=== PATIENT | male | born 1955 | race Caucasian/White ===

== ENCOUNTER 2018-07-07 17:23 | Inpatient (IN) | payer MEDICARE ==
[~2018-07-07] VITALS: Ht 182.9 cm; Wt 106.5 kg
[2018-07-07 22:01] VITALS: BP 146/72; BMI 34.1
[2018-07-07] MEDS ORDERED: ISOSORBIDE MONO60 M1 PO (23:15)
[2018-07-07] MEDS ORDERED: XALATAN 0.0052.5 ML EACH EYE (23:17)
[2018-07-07] MEDS ORDERED: ZESTRIL20 MG PO (23:17)
[2018-07-07] MEDS ORDERED: PIOGLITAZONE HC30 MG PO (23:18)
[2018-07-07] MEDS ORDERED: PROZAC40 MG PO (23:19)
[2018-07-07] MEDS ORDERED: NEURONTIN800 MG PO (23:20)
[2018-07-07] MEDS ORDERED: PREDNISONE10 MG PO (23:20)
[2018-07-07] MEDS ORDERED: ULTRAM50 MG PO (23:22)
[2018-07-07] MEDS ORDERED: CYCLOBENZAPRINE10 MG PO (23:22)
[2018-07-07] MEDS ORDERED: ALBUTEROL SULF8.5 GM INH (23:25)
[2018-07-07] MEDS ORDERED: ASPIRIN325 MG PO (23:27)
[2018-07-07] MEDS ORDERED: NAPROSYN500 MG PO (23:28)
[2018-07-07] MEDS ORDERED: PROTONIX40 MG PO (23:28)
[2018-07-07] MEDS ORDERED: FLUTICASONE PRO16 GM NASAL (23:29)
[2018-07-07] MEDS ORDERED: BASAGLAR K100 UNIT/1 SC (23:30)
[2018-07-07] MEDS ORDERED: HUMALOG 30100 UNITS/ SC (23:32)
[2018-07-07] MEDS ORDERED: ACETAMINOPHEN325 MG PO (23:32)
[2018-07-08 04:00] VITALS: BP 135/57
[2018-07-08 08:04] VITALS: BP 138/80
[2018-07-08 10:58] VITALS: BP 138/61
[2018-07-08 12:27] VITALS: Ht 182.9 cm; Wt 106.5 kg
[2018-07-08 15:24] VITALS: BP 132/74
[2018-07-08 16:43] LABS: HEMATOCRIT 39.1 % (42.0-54.0); HEMOGLOBIN 12.9 g/dL (13.5-17.5); MCH 28.8 pg (26.0-34.0); MCV 87.3 fL (80.0-100.0); MEAN PLATELET VOLUME 9.8 fL (7.4-10.4); PLATELET COUNT 208 10x3/uL (130-400); RBC 4.48 10x6/uL (4.20-6.10); RDW 13.5 % (11.5-14.5); WBC 6.2 10x3/uL (4.8-10.8)
[2018-07-08 16:52] LABS: APTT 26.9 SECONDS (22.8-39.4); INR 0.98 (0.85-1.17); PROTIME 12.6 SECONDS (11.6-15.0)
[2018-07-08 17:12] LABS: ALBUMIN 3.3 g/dL (3.4-5.0); ANION GAP 10.6 mmol/L (8-16); BILIRUBIN - TOTAL 0.3 mg/dL (0.2-1.3); CALCIUM 9.1 mg/dL (8.5-10.1); CARBON DIOXIDE 28.6 mmol/L (21.0-32.0); CREATININE - SERUM 1.1 mg/dL (0.6-1.3); MAGNESIUM - SERUM 1.6 mg/dL (1.8-2.4); POTASSIUM - SERUM 4.2 mmol/L (3.5-5.1); PROTEIN - SERUM 7.4 g/dL (6.4-8.2)
[2018-07-08 21:04] VITALS: BP 172/85
[2018-07-09 05:48] VITALS: BP 160/80
[2018-07-09 07:04] LABS: BASOPHILS 0.5 % (0-2); EOSINOPHILS 3.8 % (0-7); HEMATOCRIT 40.7 % (42.0-54.0); HEMOGLOBIN 13.7 g/dL (13.5-17.5); IMMATURE GRANULOCYTES 0.4 % (0-5); MCHC 33.7 g/dL (31.0-37.0); MEAN PLATELET VOLUME 9.9 fL (7.4-10.4); MONOCYTES 8.5 % (2-11); NEUTROPHILS 50.8 % (40-80); PLATELET COUNT 199 10x3/uL (130-400); RBC 4.73 10x6/uL (4.20-6.10); RDW 13.8 % (11.5-14.5)
[2018-07-09 07:05] LABS: WBC 8.4 10x3/uL (4.8-10.8)
[2018-07-09 07:08] LABS: CALC OSMOLALITY 270 mosm/kg (275-300); CALCIUM 8.9 mg/dL (8.5-10.1); CARBON DIOXIDE 21.3 mmol/L (21.0-32.0); CHLORIDE - SERUM 98 mmol/L (98-107); GLUCOSE 246 mg/dL (74-106); POTASSIUM - SERUM 4.5 mmol/L (3.5-5.1); SODIUM 130 mmol/L (136-145); UREA NITROGEN 17 mg/dL (7-18); eGFR NON AFRICAN AMERICAN 80 mL/min (90-120)
[2018-07-09 08:00] VITALS: BP 184/96
[2018-07-09 12:39] LABS: ERYTHROCYTE SEDIMENTATION RATE 35 mm/hr (0-20)
[2018-07-09 20:29] VITALS: BP 141/87
[2018-07-10 05:16] VITALS: BP 138/76
[2018-07-10 05:30] LABS: BASOPHILS 0 % (0-2); EOSINOPHILS 0 % (0-7); HEMATOCRIT 40.9 % (42.0-54.0); HEMOGLOBIN 13.9 g/dL (13.5-17.5); IMMATURE GRANULOCYTES 0.3 % (0-5); LYMPHOCYTES 6.9 % (15-50); MCH 29.6 pg (26.0-34.0); MCV 87.2 fL (80.0-100.0); MEAN PLATELET VOLUME 9.9 fL (7.4-10.4); MONOCYTES 4.7 % (2-11); NEUTROPHILS 88.1 % (40-80); PLATELET COUNT 227 10x3/uL (130-400); RBC 4.69 10x6/uL (4.20-6.10); RDW 13.9 % (11.5-14.5)
[2018-07-10 05:38] LABS: ANION GAP 12.7 mmol/L (8-16); CALCIUM 9.2 mg/dL (8.5-10.1); POTASSIUM - SERUM 4.8 mmol/L (3.5-5.1); WBC 16.1 10x3/uL (4.8-10.8)
[2018-07-10 05:40] LABS: CARBON DIOXIDE 27.1 mmol/L (21.0-32.0); CREATININE - SERUM 1.3 mg/dL (0.6-1.3)
[2018-07-10 08:23] VITALS: BP 165/92
[2018-07-10 11:43] VITALS: BP 158/77
[2018-07-10 15:21] VITALS: BP 166/84
[2018-07-10 20:00] VITALS: BP 164/80
[2018-07-11 00:56] VITALS: BP 166/80
[2018-07-11 04:00] VITALS: BP 136/50
[2018-07-11 06:21] LABS: BASOPHILS 0.2 % (0-2); EOSINOPHILS 0.5 % (0-7); HEMATOCRIT 38.3 % (42.0-54.0); HEMOGLOBIN 12.6 g/dL (13.5-17.5); IMMATURE GRANULOCYTES 0.3 % (0-5); LYMPHOCYTES 15.4 % (15-50); MCHC 32.9 g/dL (31.0-37.0); MCV 88.2 fL (80.0-100.0); MEAN PLATELET VOLUME 9.6 fL (7.4-10.4); MONOCYTES 7.1 % (2-11); NEUTROPHILS 76.5 % (40-80); PLATELET COUNT 201 10x3/uL (130-400); RBC 4.34 10x6/uL (4.20-6.10); RDW 13.9 % (11.5-14.5); WBC 13.2 10x3/uL (4.8-10.8)
[2018-07-11 06:37] LABS: CALCIUM 8.9 mg/dL (8.5-10.1); CARBON DIOXIDE 30.9 mmol/L (21.0-32.0); CHLORIDE - SERUM 103 mmol/L (98-107); SODIUM 140 mmol/L (136-145); UREA NITROGEN 19 mg/dL (7-18)
[2018-07-11 06:38] LABS: CALC OSMOLALITY 282 mosm/kg (275-300); GLUCOSE 142 mg/dL (74-106)
[2018-07-11 06:39] LABS: CREATININE - SERUM 0.9 mg/dL (0.6-1.3); POTASSIUM - SERUM 3.9 mmol/L (3.5-5.1); eGFR NON AFRICAN AMERICAN > 90 mL/min (90-120)
[2018-07-11 08:32] VITALS: BP 150/75
[2018-07-11 10:55] VITALS: BP 115/58
[2018-07-11 15:20] VITALS: BP 124/72
[2018-07-11 22:06] VITALS: BP 128/50
[2018-07-12 00:47] VITALS: BP 163/80
[2018-07-12 05:23] VITALS: BP 133/89
[2018-07-12 06:25] LABS: CALC OSMOLALITY 286 mosm/kg (275-300); CALCIUM 9.2 mg/dL (8.5-10.1); CARBON DIOXIDE 27.3 mmol/L (21.0-32.0); CHLORIDE - SERUM 101 mmol/L (98-107); CREATININE - SERUM 0.9 mg/dL (0.6-1.3); GLUCOSE 179 mg/dL (74-106); POTASSIUM - SERUM 4.1 mmol/L (3.5-5.1); SODIUM 141 mmol/L (136-145); UREA NITROGEN 17 mg/dL (7-18); eGFR NON AFRICAN AMERICAN > 90 mL/min (90-120)
[2018-07-12 06:36] LABS: BASOPHILS 0.3 % (0-2); EOSINOPHILS 3.3 % (0-7); HEMATOCRIT 42.1 % (42.0-54.0); HEMOGLOBIN 13.7 g/dL (13.5-17.5); IMMATURE GRANULOCYTES 0.1 % (0-5); LYMPHOCYTES 23.3 % (15-50); MCH 28.9 pg (26.0-34.0); MCHC 32.5 g/dL (31.0-37.0); MCV 88.8 fL (80.0-100.0); MEAN PLATELET VOLUME 10.2 fL (7.4-10.4); MONOCYTES 8.7 % (2-11); NEUTROPHILS 64.3 % (40-80); PLATELET COUNT 179 10x3/uL (130-400); RBC 4.74 10x6/uL (4.20-6.10); RDW 13.9 % (11.5-14.5)
[2018-07-12 06:37] LABS: WBC 8.6 10x3/uL (4.8-10.8)
[2018-07-12 08:30] VITALS: BP 155/77
[2018-07-12 15:00] VITALS: BP 134/71
[2018-07-12] MEDS ORDERED: ZOCOR20 MG PO (17:13)
[2018-07-12 22:50] VITALS: BP 145/59
[2018-07-13 01:58] VITALS: BP 125/81
[2018-07-13 05:20] LABS: BASOPHILS 0.2 % (0-2); EOSINOPHILS 3.4 % (0-7); HEMATOCRIT 39.1 % (42.0-54.0); HEMOGLOBIN 12.9 g/dL (13.5-17.5); IMMATURE GRANULOCYTES 0.3 % (0-5); LYMPHOCYTES 12.4 % (15-50); MCH 29.2 pg (26.0-34.0); MCV 88.5 fL (80.0-100.0); MEAN PLATELET VOLUME 9.7 fL (7.4-10.4); MONOCYTES 7.5 % (2-11); NEUTROPHILS 76.2 % (40-80); PLATELET COUNT 192 10x3/uL (130-400); RBC 4.42 10x6/uL (4.20-6.10); RDW 13.6 % (11.5-14.5)
[2018-07-13 05:27] LABS: WBC 11.6 10x3/uL (4.8-10.8)
[2018-07-13 05:39] LABS: CALC OSMOLALITY 275 mosm/kg (275-300); CALCIUM 9.3 mg/dL (8.5-10.1); CHLORIDE - SERUM 100 mmol/L (98-107); CREATININE - SERUM 0.9 mg/dL (0.6-1.3); GLUCOSE 154 mg/dL (74-106); SODIUM 136 mmol/L (136-145); UREA NITROGEN 16 mg/dL (7-18); eGFR NON AFRICAN AMERICAN > 90 mL/min (90-120)
[2018-07-13 06:15] VITALS: BP 151/78
[2018-07-13 07:56] VITALS: BP 158/75
[2018-07-13 10:44] VITALS: BP 144/58
[2018-07-13 16:18] LABS: ANCA - ANTIMYELOPEROXIDASE <9.0 U/mL (0.0-9.0); ANCA - ANTIPROTEINASE 3 <3.5 U/mL (0.0-3.5); ANCA - ATYPICAL <1:20 titer (Neg:<1:20); ANCA - CYTOPLASMIC <1:20 titer (Neg:<1:20); ANCA - PERINUCLEAR <1:20 titer (Neg:<1:20)
== END 2018-07-13 13:07 | DRG 65 ==
LOC: D.M2 17:23
PROVIDERS: Internal Medicine Nephrology
DX: I63.9 Cerebral infarction, unspecified (principal); I13.0 Hypertensive heart and chronic kidney disease with heart failure and stage 1 through stage 4 chronic kidney disease, or unspecified chronic kidney disease; M48.02 Spinal stenosis, cervical region; R40.2363 Coma scale, best motor response, obeys commands, at hospital admission; R40.2143 Coma scale, eyes open, spontaneous, at hospital admission; R40.2253 Coma scale, best verbal response, oriented, at hospital admission; E11.22 Type 2 diabetes mellitus with diabetic chronic kidney disease; N18.9 Chronic kidney disease, unspecified; I50.9 Heart failure, unspecified; E11.40 Type 2 diabetes mellitus with diabetic neuropathy, unspecified; I25.10 Atherosclerotic heart disease of native coronary artery without angina pectoris; E11.51 Type 2 diabetes mellitus with diabetic peripheral angiopathy without gangrene; M48.061 Spinal stenosis, lumbar region without neurogenic claudication; Z95.1 Presence of aortocoronary bypass graft; Z85.79 Personal history of other malignant neoplasms of lymphoid, hematopoietic and related tissues; Z95.5 Presence of coronary angioplasty implant and graft